=== PATIENT | male | born 1950 | race Caucasian/White ===

== ENCOUNTER 2017-03-18 09:17 | Emergency (ER) | payer OTHER ==
[2017-03-18 09:21] VITALS: BP 165/85; PULSE 64; RESP 16; TEMP 97.9; O2SAT 96
--- NOTE | 2017-03-18 09:32 | EDPHY ---
H & P Time Seen by Provider: 03/18/17 09:22 HPI/ROS: CHIEF COMPLAINT: Right 2nd toe pain HISTORY OF PRESENT ILLNESS: Patient jammed into a weight at this time and pool injuring it 6 weeks ago and was getting better but over the last 24 hours started getting worse. Pain in the 2nd toe in the ball of the foot worse with weight-bearing. REVIEW OF SYSTEMS: No other injury, no new trauma. PAST MEDICAL HISTORY: Right knee surgery, back pain, hypertension. General Appearance: Alert and conversant, cooperative. Slight pain in the ball of the foot just proximal to the 2nd toe. Right 2nd toe is swollen and tender to palpation. Normal capillary refill and motor and sensory. Remainder of the foot is nontender. Skin is intact. No surrounding redness or warmth or lymphangitis Emergency Department course/MDM: X-ray of the right 2nd toe and foot ordered. 947: x-ray personally reviewed shows fracture of the distal part of the proximal phalanx of the right 2nd toe with some callus, minimally displaced. Reviewed with the patient. Hard shoe and Ortho follow-up this week. Smoking Status: Never smoked Constitutional: Initial Vital Signs Temperature (C) 36.6 C 03/18/17 09:19 Heart Rate 64 03/18/17 09:19 Respiratory Rate 16 03/18/17 09:19 Blood Pressure 165/85 H 03/18/17 09:19 O2 Sat (%) 96 03/18/17 09:19 O2 Delivery Mode Room Air Allergies/Adverse Reactions: Penicillins Allergy (Verified 12/19/15 08:26) Home Medications: Medication Instructions Recorded Htn Med 12/19/15 Lipitor 12/19/15 Indomethacin [INDOMETHACIN] 75 mg PO DAILY #10 03/28/16 MDM/Departure - Depart Disposition: Home, Routine, Self-Care Clinical Impression: Closed fracture of second toe of right foot Condition: Good Instructions: Toe Fracture (ED) Additional Instructions: Please follow-up this week with your orthopedist or with Dr. Pace. Hard shoe when walking or weight-bearing. Referrals: Jordi Pace MD [Primary Care Provider] - As per Instructions
== END 2017-03-18 09:59 | disposition home or self-care (01) ==
DX: S92.511A Displaced fracture of proximal phalanx of right lesser toe(s), initial encounter for closed fracture (principal); W23.1XXA Caught, crushed, jammed, or pinched between stationary objects, initial encounter; Y99.8 Other external cause status
CPT/HCPCS: L3260